=== PATIENT | female | born 1955 | race Caucasian/White ===

== ENCOUNTER 2020-03-26 02:19 | Outpatient (CLI) | payer MEDICARE, MEDICAID, SELFPAY ==
[2020-03-26 18:35] LABS: SARS-CoV-2 RNA PCR Negative
== END 2020-03-26 02:20 | disposition home or self-care (01) ==
LOC: ANHCOVIDDT 02:19
PROVIDERS: PCP Family Medicine; Visit Provider Internal Medicine Gastroenterology
DX: Z01.812 Encounter for preprocedural laboratory examination (principal); Z20.828 Contact with and (suspected) exposure to other viral communicable diseases
CPT/HCPCS: 87635; C9803; U0003

== ENCOUNTER 2020-03-29 00:28 | Day surgery (SDC) | payer MEDICARE, MEDICAID, SELFPAY ==
[2020-03-23 11:29] VITALS: BMI 24.2
[2020-03-29 13:32] VITALS: BP 116/97; PULSE 106; RESP 16; TEMP 36.4; O2SAT 98
[2020-03-29] MEDS: LACTATED RINGERS 1,000 ML 150 ML IV CONT (13:42)
--- NOTE | 2020-03-29 14:29 | WPDANESEPPF ---
Anes - Initial Pre Proc Eval Procedure: Operation Date: 03/29/20 14:00 Proposed Procedures p Esophagogastroduodenoscopy&Screen Colon - Sonny Cordero MD Date/Time: 03/29/20 14:29 Surgeon: Sonny Cordero MD Pre Op Diagnosis: Gerd,Dysphagia, Neoplasm Screening Patient Data Age: 64 Gender: F Height: 5 ft 6 in Weight: 70.8 kg Last Vital Signs Temp 36.4 C L 03/29/20 13:32 Pulse 106 H 03/29/20 13:32 Resp 16 03/29/20 13:32 BP 116/97 H 03/29/20 13:32 Pulse Ox 98 03/29/20 13:32 Allergies Allergy/AdvReac Type Severity Reaction Status Date / Time morphine Allergy Severe Swelling Verified 03/29/20 13:30 Home Medications Medication Instructions Recorded Confirmed Type linaclotide 290 mcg capsule 290 mcg PO QAM PRN 02/21/19 03/23/20 History albuterol sulfate 90 mcg/actuation 2 puff INHALATION Q4-6H PRN #18 gm 07/18/19 03/23/20 Rx aerosol inhaler budesonide-formoterol HFA 160 2 puff INHALATION Q12H #10.2 gm 07/18/19 03/23/20 Rx mcg-4.5 mcg/actuation aerosol inhaler tiotropium bromide 18 mcg capsule 1 cap INHALATION DAILY #30 07/18/19 03/23/20 Rx with inhalation device inhalation esomeprazole magnesium 40 mg 40 mg PO DAILY #30 cap 02/14/20 03/23/20 Rx capsule,delayed release aspirin 81 mg tablet,delayed 81 mg PO DAILY 02/23/20 03/23/20 History release zolpidem 10 mg tablet 10 mg PO HS tablet 02/23/20 03/23/20 History hydrocodone-acetaminophen 1 tablet PO Q8-12H PRN 03/23/20 03/23/20 History spironolactone 50 mg PO QAM PRN 03/23/20 03/23/20 History triamterene-hydrochlorothiazid 1 cap PO PRN PRN 03/23/20 03/23/20 History Patient hx anesthesia problems: none Family hx anesthesia problems: none PMFSH Past Medical History Medical History Acute non-recurrent maxillary sinusitis Benign colon polyp Cerebral palsy Chronic anxiety Chronic depression Chronic left hip pain Chronic low back pain without sciatica Chronic pain of left knee Colon polyp COPD (chronic obstructive pulmonary disease) Dysphagia GERD (gastroesophageal reflux disease) Hirsutism Insomnia Rectal pain Tobacco consumption Tobacco use disorder, continuous Vitamin B12 deficiency anemia Vitamin D deficiency, unspecified Family History Family History Mother Family history of malignant neoplasm, Onset Age: 60 Father Family history of congestive heart failure, Onset Age: 63 Social History Social History Smoking packs per day: 0.5 Smoking cigarettes per day: 10.0 Years smoked: 51 Smoking pack-years: 25.50 Smoking status: Current every day smoker Tobacco type: cigarettes Alcohol intake: current Substance use: never Substance use type: does not use Living arrangements: with family Spiritual care concerns: No Anes - Eval Final PreProcedure Day of Procedure 03/29/20 14:29 Patient weight: normal Heart: regular rate and rhythm Lungs: clear to auscultation Airway: Mallampati scale class II Neurological: alert and oriented Last oral intake: >/= 8 hours ASA classification: III Emergent: no Anesthetic plan: proceed Anesthesia type and monitoring: general GIVS and standard monitoring Informed Consent: The patient's anesthetic plan and its attendant risks and benefits were discussed with the patient/family/POA. Questions were solicited and answers provided to the satisfaction of the patient/family/POA.
--- NOTE | 2020-03-29 15:00 | PM.HPGS ---
History of Present Illness History of Present Illness Consent: Risks, benefits, and alternatives have been discussed and questions answered. Patient agrees to proceed with procedure. Chief complaint: Gerd,Dysphagia, Neoplasm Screening Narrative: Kayy Cabello is a 64 year old female with GERD on nexium and history of esophageal dilation, also colon polyps Review of Systems Constitutional: Constitutional: Denies headache(s) and Denies weakness Eyes: Eyes: Denies blurry vision ENT: Reports Normal hearing present, Denies headache(s) and Denies neck pain Cardiovascular: Cardiovascular: Denies chest pain and Denies dyspnea Respiratory: Respiratory: Denies dyspnea Gastrointestinal: Gastrointestinal: Reports no additional gastrointestinal complaints Genitourinary: Genitourinary: Denies dysuria Musculoskeletal: Musculoskeletal: Denies neck pain Integumentary/Breasts: Skin/Breast: Denies dry skin Neurologic: Reports Normal hearing present, Denies headache(s) and Denies weakness Psychiatric: Psychiatric: Denies anxiety Endocrine: Endocrine: Denies change in body appearance Hematologic/Lymphatic: Hematologic/Lymphatic: Denies easy bleeding Allergic/Immunologic: Allergic/Immunologic: Denies urticaria PMFSH Past Medical History Medical History Acute non-recurrent maxillary sinusitis Benign colon polyp Cerebral palsy Chronic anxiety Chronic depression Chronic left hip pain Chronic low back pain without sciatica Chronic pain of left knee Colon polyp COPD (chronic obstructive pulmonary disease) Dysphagia GERD (gastroesophageal reflux disease) Hirsutism Insomnia Rectal pain Tobacco consumption Tobacco use disorder, continuous Vitamin B12 deficiency anemia Vitamin D deficiency, unspecified Family History Family History Mother Family history of malignant neoplasm, Onset Age: 60 Father Family history of congestive heart failure, Onset Age: 63 Social History Social History Smoking packs per day: 0.5 Smoking cigarettes per day: 10.0 Years smoked: 51 Smoking pack-years: 25.50 Smoking status: Current every day smoker Tobacco type: cigarettes Alcohol intake: current Substance use: never Substance use type: does not use Living arrangements: with family Spiritual care concerns: No Meds Home Medications and Allergies Home Medications Medication Instructions Recorded Confirmed Type linaclotide 290 mcg capsule 290 mcg PO QAM PRN 02/21/19 03/23/20 History albuterol sulfate 90 mcg/actuation 2 puff INHALATION Q4-6H PRN #18 gm 07/18/19 03/23/20 Rx aerosol inhaler budesonide-formoterol HFA 160 2 puff INHALATION Q12H #10.2 gm 07/18/19 03/23/20 Rx mcg-4.5 mcg/actuation aerosol inhaler tiotropium bromide 18 mcg capsule 1 cap INHALATION DAILY #30 07/18/19 03/23/20 Rx with inhalation device inhalation esomeprazole magnesium 40 mg 40 mg PO DAILY #30 cap 02/14/20 03/23/20 Rx capsule,delayed release aspirin 81 mg tablet,delayed 81 mg PO DAILY 02/23/20 03/23/20 History release zolpidem 10 mg tablet 10 mg PO HS tablet 02/23/20 03/23/20 History hydrocodone-acetaminophen 1 tablet PO Q8-12H PRN 03/23/20 03/23/20 History spironolactone 50 mg PO QAM PRN 03/23/20 03/23/20 History triamterene-hydrochlorothiazid 1 cap PO PRN PRN 03/23/20 03/23/20 History Allergies Allergy/AdvReac Type Severity Reaction Status Date / Time morphine Allergy Severe Swelling Verified 03/29/20 13:30 Vital Signs Vital Signs - 24 hr 03/29/20 13:32 Temperature 97.5 F L Pulse Rate 106 H Respiratory Rate 16 Blood Pressure 116/97 H Pulse Oximetry 98 Exam Const: General: comfortable and no acute distress HENMT: General nose exam: Normal nares present Eyes: General: appearance normal, both eyes and all rela
[2020-03-29] MEDS: BENZOCAINE (*SP) 60 ML SPRAY CAN (HURRICAINE) 1 SPRAY MUCOUS MEM (15:07)
[2020-03-29 15:37] VITALS: BP 87/57; PULSE 85; RESP 22; O2SAT 96
[2020-03-29 15:47] VITALS: BP 89/52; PULSE 81; RESP 20; O2SAT 98
[2020-03-29 15:54] VITALS: BP 109/77; PULSE 78; RESP 19; O2SAT 99
== END 2020-03-29 16:10 | disposition home or self-care (01) ==
PROVIDERS: PCP Family Medicine; Visit Provider Internal Medicine Gastroenterology
PROC: 0DJ08ZZ Inspection of Upper Intestinal Tract, Via Natural or Artificial Opening Endoscopic (ICD-10-PCS; CPT 43235; principal; 2020-03-29 14:00)
DX: Z12.11 Encounter for screening for malignant neoplasm of colon (principal); D12.3 Benign neoplasm of transverse colon; K21.9 Gastro-esophageal reflux disease without esophagitis; R13.10 Dysphagia, unspecified; Z79.82 Long term (current) use of aspirin; Z79.51 Long term (current) use of inhaled steroids; Z86.010 Personal history of colon polyps; K30 Functional dyspepsia; R13.19 Other dysphagia; K63.89 Other specified diseases of intestine; Z98.0 Intestinal bypass and anastomosis status; K63.5 Polyp of colon; K57.30 Diverticulosis of large intestine without perforation or abscess without bleeding; K29.50 Unspecified chronic gastritis without bleeding; K64.8 Other hemorrhoids; G80.9 Cerebral palsy, unspecified; F41.9 Anxiety disorder, unspecified; F32.9 Major depressive disorder, single episode, unspecified; J44.9 Chronic obstructive pulmonary disease, unspecified; L68.0 Hirsutism; E55.9 Vitamin D deficiency, unspecified; D51.9 Vitamin B12 deficiency anemia, unspecified; F17.210 Nicotine dependence, cigarettes, uncomplicated
CPT/HCPCS: 43239; 43249; 45380; 87081; 87635; 88305; C1726; C9803; J2704; J7120; U0003

== ENCOUNTER 2022-11-18 00:30 | Day surgery (SDC) | payer MEDICARE, MEDICAID, SELFPAY ==
[2022-11-11 10:00] VITALS: BMI 25.9
[2022-11-18 08:25] VITALS: BP 101/71; PULSE 111; RESP 18; TEMP 35.7; O2SAT 100; BMI 25.1
[2022-11-18] MEDS: LACTATED RINGERS 1,000 ML 150 ML IV CONT (08:47)
--- NOTE | 2022-11-18 09:13 | PM.HPGS ---
History of Present Illness History of Present Illness Consent: Risks, benefits, and alternatives have been discussed and questions answered. Patient agrees to proceed with procedure. 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. She takes Wilson 5 times per day using Relistor. Last egd 2020 with non-obstructive ring that was dilated, lately with dysphagia again, also had small TA polyp removed. Review of Systems Constitutional: Constitutional: Denies headache(s) and Denies weakness Eyes: Eyes: Denies blurry vision ENT: Reports Normal hearing present, Denies headache(s) and Denies neck pain Cardiovascular: Cardiovascular: Denies chest pain and Denies dyspnea Respiratory: Respiratory: Denies dyspnea Gastrointestinal: Gastrointestinal: Reports no additional gastrointestinal complaints Genitourinary: Genitourinary: Denies dysuria Musculoskeletal: Musculoskeletal: Denies neck pain Integumentary/Breasts: Skin/Breast: Denies dry skin Neurologic: Reports Normal hearing present, Denies headache(s) and Denies weakness Psychiatric: Psychiatric: Denies anxiety Endocrine: Endocrine: Denies change in body appearance Hematologic/Lymphatic: Hematologic/Lymphatic: Denies easy bleeding Allergic/Immunologic: Allergic/Immunologic: Denies urticaria PMFSH Past Medical History Medical History (Updated 10/16/22 @ 14:00 by Elsi Warner APRN) Acute non-recurrent maxillary sinusitis Benign colon polyp Cerebral palsy Chronic anxiety Chronic depression Chronic left hip pain Chronic low back pain without sciatica Chronic pain of left knee Colon polyp Constipation due to opioid therapy COPD (chronic obstructive pulmonary disease) Dysphagia Esophageal spasm GERD (gastroesophageal reflux disease) Hematochezia Hirsutism Hx of colonic polyps Insomnia Nausea and vomiting Rectal pain Tobacco consumption Tobacco use disorder, continuous Vitamin B12 deficiency anemia Vitamin D deficiency, unspecified Family History Family History Mother Family history of malignant neoplasm, Onset Age: 60 Father Family history of congestive heart failure, Onset Age: 63 Social History Social History Smoking packs per day: 0.5 Smoking cigarettes per day: 10.0 Years smoked: 54 Smoking pack-years: 27.00 Smoking status: Current every day smoker Tobacco type: cigarettes Alcohol intake: current Alcohol use details: seldom Substance use: never Substance use type: does not use Living arrangements: with family Spiritual care concerns: No Meds Home Medications and Allergies Home Medications Medication Instructions Recorded Confirmed Type albuterol sulfate 90 mcg/actuation 2 puff inhalation Q4-6H PRN 07/18/19 11/18/22 Rx aerosol inhaler (ProAir HFA) shortness of breath or wheezing #18 grams aspirin 81 mg tablet,delayed 81 mg PO DAILY 02/23/20 11/18/22 History release zolpidem 10 mg tablet 10 mg PO HS 02/23/20 11/18/22 History hydrocodone 10 mg-acetaminophen 1 tablet PO Q8-12H PRN Pain 03/23/20 11/18/22 History 325 mg tablet docusate sodium 100 mg capsule 100 mg PO QHS #30 caps 10/16/22 11/18/22 Rx (Colace) methylnaltrexone 150 mg tablet 450 mg PO DAILY 1 month #90 tabs 10/16/22 11/18/22 Rx (Relistor) budesonide-formoterol HFA 160 2 puff inhalation Q12H PRN 11/11/22 11/18/22 History mcg-4.5 mcg/actuation aerosol Shortness Of Breath inhaler (Symbicort) cholecalciferol (vitamin D3) 25 25 mcg PO DAILY 11/11/22 11/18/22 History mcg (1,000 unit) tablet (Vitamin D3) dexlansoprazole 60 mg 60 mg PO DAILY PRN Indigestion 11/11/22 11/18/22
--- NOTE | 2022-11-18 09:14 | WPDANESEPPF ---
Anes - Initial Pre Proc Eval Procedure: Operation Date: 11/18/22 09:45 Proposed Procedures p Esophagogastroduodenoscopy & Colonoscopy - Sonny Cordero MD Date/Time: 11/18/22 09:14 Surgeon: Sonny Cordero MD Pre Op Diagnosis: GERD,Dysphagia,Melena,hx colon polyps Patient Data Age: 67 Gender: F Height: 1.68 m Weight: 70.6 kg Last Vital Signs Temp 35.7 C L 11/18/22 08:25 Pulse 111 H 11/18/22 08:25 Resp 18 11/18/22 08:25 BP 101/71 11/18/22 08:25 Pulse Ox 100 11/18/22 08:25 O2 Del Method Room Air 11/18/22 08:25 Allergies Allergy/AdvReac Type Severity Reaction Status Date / Time morphine Allergy Severe Nausea and Verified 11/18/22 08:26 Vomiting Home Medications Medication Instructions Recorded Confirmed Type albuterol sulfate 90 mcg/actuation 2 puff inhalation Q4-6H PRN 07/18/19 11/18/22 Rx aerosol inhaler (ProAir HFA) shortness of breath or wheezing #18 grams aspirin 81 mg tablet,delayed 81 mg PO DAILY 02/23/20 11/18/22 History release zolpidem 10 mg tablet 10 mg PO HS 02/23/20 11/18/22 History hydrocodone 10 mg-acetaminophen 1 tablet PO Q8-12H PRN Pain 03/23/20 11/18/22 History 325 mg tablet docusate sodium 100 mg capsule 100 mg PO QHS #30 caps 10/16/22 11/18/22 Rx (Colace) methylnaltrexone 150 mg tablet 450 mg PO DAILY 1 month #90 tabs 10/16/22 11/18/22 Rx (Relistor) budesonide-formoterol HFA 160 2 puff inhalation Q12H PRN 11/11/22 11/18/22 History mcg-4.5 mcg/actuation aerosol Shortness Of Breath inhaler (Symbicort) cholecalciferol (vitamin D3) 25 25 mcg PO DAILY 11/11/22 11/18/22 History mcg (1,000 unit) tablet (Vitamin D3) dexlansoprazole 60 mg 60 mg PO DAILY PRN Indigestion 11/11/22 11/18/22 History capsule,biphase delayed release (Dexilant) hydromorphone 4 mg tablet 4 mg PO BID PRN Pain 11/11/22 11/18/22 History tiotropium bromide 18 mcg capsule 1 cap inhalation DAILY PRN 11/11/22 11/18/22 History with inhalation device (Spiriva Shortness Of Breath with HandiHaler) Patient hx anesthesia problems: none Family hx anesthesia problems: none Results Review: All pre-operative results and documents have been reviewed as part of the pre-operative evaluation. [facility] Past Medical History Medical History Acute non-recurrent maxillary sinusitis Benign colon polyp Cerebral palsy Chronic anxiety Chronic depression Chronic left hip pain Chronic low back pain without sciatica Chronic pain of left knee Colon polyp Constipation due to opioid therapy COPD (chronic obstructive pulmonary disease) Dysphagia Esophageal spasm GERD (gastroesophageal reflux disease) Hematochezia Hirsutism Hx of colonic polyps Insomnia Nausea and vomiting Rectal pain Tobacco consumption Tobacco use disorder, continuous Vitamin B12 deficiency anemia Vitamin D deficiency, unspecified Family History Family History Mother Family history of malignant neoplasm, Onset Age: 60 Father Family history of congestive heart failure, Onset Age: 63 Social History Social History Smoking packs per day: 0.5 Smoking cigarettes per day: 10.0 Years smoked: 54 Smoking pack-years: 27.00 Smoking status: Current every day smoker Tobacco type: cigarettes Alcohol intake: current Alcohol use details: seldom Substance use: never Substance use type: does not use Living arrangements: with family Spiritual care concerns: No Anes - Eval Final PreProcedure Day of Procedure 11/18/22 09:14 Patient weight: normal Heart: regular rate and rhythm Lungs: decreased breath sounds Neurological: alert and oriented Last oral intake: >/= 8 hours ASA classification: III Emergent: no Anesthetic plan: proceed Anesthesia type and mo
--- NOTE | 2022-11-18 09:31 | SUR.OPER ---
EGD START: 918; END: 925. COLONOSCOPY START: 930; END: 939.
[2022-11-18 09:43] VITALS: BP 96/68; PULSE 90; RESP 20; O2SAT 99
[2022-11-18 09:53] VITALS: BP 96/58; PULSE 78; RESP 20; O2SAT 100
[2022-11-18 10:03] VITALS: BP 100/76; PULSE 80; RESP 21; O2SAT 100
== END 2022-11-18 10:13 | disposition home or self-care (01) ==
PROVIDERS: Visit Provider Internal Medicine Gastroenterology
PROC: 0DJ08ZZ Inspection of Upper Intestinal Tract, Via Natural or Artificial Opening Endoscopic (ICD-10-PCS; CPT 43235; principal; 2022-11-18 09:45)
DX: Z12.11 Encounter for screening for malignant neoplasm of colon (principal); D12.4 Benign neoplasm of descending colon; K63.5 Polyp of colon; Z98.0 Intestinal bypass and anastomosis status; Z90.49 Acquired absence of other specified parts of digestive tract; K59.03 Drug induced constipation; K21.00 Gastro-esophageal reflux disease with esophagitis, without bleeding; K22.2 Esophageal obstruction; K44.9 Diaphragmatic hernia without obstruction or gangrene; K29.70 Gastritis, unspecified, without bleeding; Z79.51 Long term (current) use of inhaled steroids; Z79.82 Long term (current) use of aspirin; G80.9 Cerebral palsy, unspecified; J44.9 Chronic obstructive pulmonary disease, unspecified; D51.3 Other dietary vitamin B12 deficiency anemia; E55.9 Vitamin D deficiency, unspecified; F17.210 Nicotine dependence, cigarettes, uncomplicated
CPT/HCPCS: 45385; 43239; 43249; 88305; C1726; J2704; J7120

== ENCOUNTER 2025-03-21 03:28 | Day surgery (SDC) | payer MEDICARE, OTHER, SELFPAY ==
[2025-02-27 13:50] VITALS: BMI 26.3
--- OUTSIDE RECORDS SUMMARY | 2025-03-20 11:15 | XMS_ITS | Encounter Summary ---
Author Organization [facility] Healthcare Address [address] [place] [address] Care Team Providers Care Assembler Rubber Footwear Name Role Phone Terrence Gibson MD Primary Care Provi audi Vinay Espinal MD Unavailable [phone] Damion Siddiqui MD, Mario P. Unavailable [phone] Alexus Alonzo Unavailable [phone] Encounter Details Date Type Department Care Team (Latest Contact Info) Description 03/20/2025 11:15 AM PROTOHISTORIAN - 03/20/2025 11:59 PM PROTOHISTORIAN Hospital Encounter [facility] [address] [place] [address] Closed fracture of right tibial plateau with routine healing, subsequent encounter; Acute pain of left knee Discharge Disposition: Discharge to home or self care Social History Tobacco Use Types Packs/Day Years Used Date Smoking Tobacco: Every Day Cigarettes 0.5 55.9 Started: 1970 Passive Smoke Exposure: Current Smokeless Tobacco: Never Alcohol Use Standard Drinks/Week Comments Not Currently 0 (1 standard drink = 0.6 oz pur e alcohol) OASIS D0700: Social Isolation Answer Da te Recorded Frequency of experiencing loneliness or isolatio n Never 07/08/2024 OASIS A1250: Transportation Answer Date Recorded Lack of Transportation (Medical) No 07/08/2024 Lack of Transportation (Non-Medical) No 07/08/2024 Patient Unable or Declines to Respond No 07/08/2024 OASIS B1300: Health Literacy Answer Maurisio e Recorded Frequency of needing help to read materials from doctor or pharmacy Never 07/08/2024 [facility] Utilities Answer Date Recorded In the past 12 months has th e electric, gas, oil, or water company threatened to shut off services in your home? No 05/25/2024 Social Connection and Isolation Panel Answer Date Recorded In a typical week, how many times do you talk on the phone with family, friends, or neighbors? More than three times a week 05/25/2024 How often do you get togethe r with friends or relatives? More than three times a week 05/25/2024 How often do you attend chur ch or gnosticism services? Never 05/25/2024 Do you belong to any clubs o r organizations such as mandaeism groups, unions, fraternal or athletic groups, or school groups? No 05/25/2024 How often do you attend meet ings of the clubs or organizations you belong to? Never 05/25/2024 Are you , , di vorced, , never , or living with a partner? 05/25/2024 AUDIT-C Answer Date Recorded Q1: How often do you have a drink containing alc ohol? Monthly or less 09/20/2024 Q2: How many drinks containi ng alcohol do you have on a typical day when you are drinking? 1 or 2 09/20/2024 Q3: How often do you have si x or more drinks on one occasion? Never 09/20/2024 Overall Financial Resource Strain (CARDIA) Answe r Date Recorded How hard is it for you to pa y for the very basics like food, housing, medical care, and heating? Not hard at all 05/25/2024 PHQ-2 Answer Date Recorded PHQ-2 Total Score (If total score is 3 or more points, staff should administer the PHQ-9) 6 02/01/2025 Hunger Vital Sign Answer Date Recorded Within the past 12 months, y ou worried that your food would run out before you got the money to buy more. Never true 05/25/19 25 Within the past 12 months, t he food you bought just didn't last and you didn't have money to get more. Never true 05/25/2024 PRAPARE - Transportation Answer Date Re corded In the past 12 months, has l ack of transportation kept you from medical appointments or from getting medications? No 05/14 In the past 12 months, has l ack of transportation kept you from meetings, work, or from getting things needed for daily living? No 05/25/2024 PHQ-9 Answer Date Recorded PHQ-9 Total Score 21 02/01/2025 Housing Stability Vital Sign Answer Maurisio e Recorded In the last 12 months, was t here a time when you were not able to pay the mortgage or rent on time? No 05/25/2024 In the past 12 months, how m any times have you moved where you were living? 0 05/25/2024 At any time in the past 12 m [facility], were you homeless or living in a fpc (including now)? No 05/25/2024 Personal Safety Answer Date Recorded Have you ever been in or are you currently in a harmful physical or emotional relationship or is someone making you feel afraid or unsafe? Denies 11/27/2024 Comments No Sex and Gender Information Value Date Recorded Sex Assigned at Not on file Legal Sex Female 4:03 AM PROTOHISTORIAN Gender Identity Not on file Sexual Orientation Not on file Occupation Industry Job Start Date Job End Date Disabled Not on file Not on file Not on file documented as of this encounter Medications at Time of Discharge albuterol HFA (PROVENTIL HFA,VENTOLIN HFA,PROAIR HFA) 90 mcg/actuation inhalerIndications :Chronic Obstructive Pulmonary Disease Inhale 2 puffs every 6 (six) hours as needed for wheezing 1 each 11 02/20/2024 celecoxib (CeleBREX) 100 mg capsuleIndications :Left knee pain, unspecified chronicity TAKE 1 CAPSULE(100 MG) BY MOUTH TWICE DAILY 180 capsule 11/01/2024 cyanocobalamin (Vitamin B-12) 1,000 mcg/mL injectionIndicatio ns:Vitamin B12 Deficiency Inject 1 mL (1,000 mcg total) under the skin every 4 (four) weeks 1 mL 11 02/01/2025 estradioL (Estrace) 0.01 % (0.1 mg/gram) vaginal creamIndications:V aginal atrophy Apply / applicator (1g) to the vagina 2-3 times per week (such as Thursday/Thursday /Thursday) 42.5 g 3 02/03/2025 fentaNYL (DURAGESIC) 50 mcg/hrIndications: severe chronic pain with opioid tolerance Place 1 patch on the skin every third day 04/22/2024 fluticasone-umecli din-vilanter (Trelegy Ellipta) 100-62.5-25 mcg inhaler Inhale 1 puff daily 30 each 11 06/28/2024 gabapentin (NEURONTIN) 300 mg capsule TAKE 1 CAPSULE BY MOUTH THREE TIMES DAILY NEEDED 10/04/2024 HYDROcodone-acetam inophen (NORCO) 10-325 mg per tablet TAKE 1 TABLET BY MOUTH EVERY 4-6 HOURS NEEDED FOR PAIN MUST LAST 14 DAYS 10/05/2024 ibuprofen (ADVIL,MOTRIN) 600 mg tablet Take 1 tablet (600 mg total) by mouth every 6 (six) hours as needed for pain 90 tablet 09/20/2024 methenamine (HIPREX) 1 gram tabletIndications: UTI prophylaxis Take 1 tablet (1 g total) by mouth 2 (two) times a day with meals 60 tablet 3 02/03/2025 naloxone (NARCAN) 4 mg/actuation spray,non-aerosol Administer 1 spray into affected nostril(s) as needed for opioid reversal or respiratory depression Call 911. Administer a single spray in one nostril. Repeat every 3 minutes as needed if no or minimal response. 2 each 3 02/01/[address] (PROTONIX) 40 mg EC tablet Take 1 tablet (40 mg total) by mouth daily 90 tablet 4 09/13/2024 plecanatide 3 mg tabletIndications: chronic idiopathic constipation Take 1 tablet (3 mg total) by mouth daily 90 tablet 3 09/13/2024 rOPINIRole (REQUIP) 0.5 mg tabletIndications: Restless Legs Syndrome TAKE 1 TABLET(0.5 MG) BY MOUTH EVERY NIGHT 100 tablet 1 10/10/2024 documented as of this encounter Discharge Disposition Disposition Code Departure Means Destination Discharge to home or self care documented in this encounter Plan of Treatment Not on file documented as of this encounter Procedures Procedure Name Priority Date/Time Associated Diagnosis Comments XR KNEE BILATERAL 3 VIEWS Schedule Routine, Read Routine (OP Routine) 03/20/2025 11:23 AM PROTOHISTORIAN Closed fracture of right tibial plateau with routine healing, subsequent encounter Acute pain of left knee documented in this encounter Results * XR Knee Bilateral 3 Views (03/20/2025 11:23 AM PROTOHISTORIAN) Anatomical Region Laterality Modality Lower Extremities, Knee Bilateral Computed Radiography 03/20/2025 1:37 PM PROTOHISTORIAN Impressions 03/20/2025 1:37 PM PROTOHISTORIAN 1. Mild medial and patellofemoral bicompartmental right knee osteoarthritis. 2. 2 component left knee arthroplasty in near-anatomic alignment. 3. Mildly displaced left lateral patellar facet fracture. Electronically signed by: Nav Marroquin M.D. Narrative 03/20/2025 1:37 PM PROTOHISTORIAN EXAMINATION: XR KNEE BILATERAL 3 VIEWS HISTORY: pain. Fall Bilateral knee osteoarthritis FINDINGS: 3 views each knee submitted with comparison 11/27/2024, 10/06/2024. Right knee: No acute fracture. Mild medial and patellofemoral bicompartmental right knee osteoarthritis. No effusion. Extensor mechanism enthesophyte formation is present. Left knee: 2 component left knee arthroplasty is in near-anatomic alignment. Mildly displaced lateral patellar facet fracture noted. Small knee effusion. Procedure Note Nav Marroquin MD - 03/20/2025 EXAMINATION: XR KNEE BILATERAL 3 VIEWS HISTORY: pain. Fall Bilateral knee osteoarthritis FINDINGS: 3 views each knee submitted with comparison 11/27/2024, 10/06/2024. Right knee: No acute fracture. Mild medial and patellofemoral bicompartmental right knee osteoarthritis. No effusion. Extensor mechanism enthesophyte formation is present. Left knee: 2 component left knee arthroplasty is in near-anatomic alignment. Mildly displaced lateral patellar facet fracture noted. Small knee effusion. IMPRESSION: 1. Mild medial and patellofemoral bicompartmental right knee osteoarthritis. 2. 2 component left knee arthroplasty in near-anatomic alignment. 3. Mildly displaced left lateral patellar facet fracture. Electronically signed by: Nav Marroquin M.D. Alok Miguel DO IMG XR PROCEDURES Final Result documented in this encounter Visit Diagnoses Diagnosis Closed fracture of right tibial plateau with routine healing, subsequent encounter Acute pain of left knee documented in this encounter Care Teams Assembler Rubber Footwear Relationship Specialty Start Date End Date Terrence Gibson MD [address] [address] PCP - General Family Medicine 06/17/22 Vinay Espinal MD [address] [address] Consulting Physician Pulmonary Disease 02/16/24 Mario Bruno Jr., MD [address] [place] [address] Consulting Physician Cardiology 04/26/24 Alexus Alonzo PA [address] [facility] [address] [place] [address] [place] [id number] Orthopedic Surgery 05/24/24 documented as of this encounter
--- OUTSIDE RECORDS SUMMARY | 2025-03-20 11:30 | XMS_ITS | Encounter Summary ---
Author Organization [facility] Healthcare Address [address] [place] [address] Care Team Providers Care Informatics Specialist Name Role Phone Terrence Gibson MD Primary Care Provi audi Vinay Espinal MD Unavailable [phone] Damion Siddiqui MD, Mario P. Unavailable [phone] Alexus Alonzo Unavailable [phone] Reason for Visit * Reason Comments Pain Fracture Pain Encounter Details Date Type Department Care Team (Late st Contact Info) Description 03/20/2025 11:30 AM ROLL OVER LOADER Office Visit [facility] Orthopedics and Sports Medicine [address] [place] [phone] Alok Miguel DO [address] [place] [id number] Closed fracture of right tibial plateau with routine healing, subsequent encounter (Primary Dx); Acute pain of left knee; Closed displaced fracture of left patella with routine healing, unspecified fracture morphology, subsequent encounter Social History Tobacco Use Types Packs/Day Years [...] materials from doctor or pharmacy Never 07/08/2024 [facility] Utilities Answer Date Recorded In the past [...] often do you attend chur ch or spiritism services? Never 05/25/2024 Do you belong to any clubs o r organizations such as sikhism groups, unions, fraternal or athletic groups, or [...] any time in the past 12 m onths, were you homeless or living in a usp (including now)? No 05/25/2024 Personal Safety Answer Date Recorded Have you ever been in or are you currently in a harmful physical or emotional relationship or is someone making you feel afraid or unsafe? Denies 11/27/2024 Comments No Sex and Gender Information Value Date Recorded Sex Assigned at Not on file Legal Sex Female 4:03 AM ROLL OVER LOADER Gender Identity Not on file Sexual Orientation Not on file Occupation Industry Job Start Date Job End Date Disabled Not on file Not on file Not on file documented as of this encounter Progress Notes * Alok Miguel, - 03/20/2025 11:30 AM CST Images from the original note were not included. This patient has verbally consented to recording this visit in order to utilize AI technology in generating this note. FOLLOW UP PATIENT VISIT Subjective CHIEF COMPLAINT She had concerns including Pain and Fracture of the Right Knee and Pain of the Left Knee. History of Present Illness Kayy Cabello is a 69 year old female with a history of knee surgery who presents with concerns about a recent fall on her surgically repaired knee. She experienced a fall on February 12 or , landing directly on her surgically repaired knee. She is concerned about potential damage, noting a persistent swelling on the knee and pain in the areawhere she fell. She describes a 'round thing' on the knee that hurts with movement. Prior to the fal l, her knee was functioning well, allowing her to perform all activities without limitation. She has a history of cerebral palsy, contributing to leg length discrepancy, for which she uses shoe lifts. She reports frequent falls, attributing them to her knee 'giving out,' described as bendingforward unexpectedly. A recent fall occurred while trying to get out of bed, where she caught herself on a bedpost. She also reports chronic hip pain, sometimes radiating to the groin. She experiences difficulty distinguishing which pain is most severe due to multiple sources of discomfort. She uses a cane but not consistently at home. Objective PHYSICAL EXAM There were no vitals taken for this visit. Exam of the right knee shows no effusion. No pain over the medial tibial plateau. Diffuse atrophy in the right leg with shortening. Flexion contracture of proximally 10??. She is able to flex to 110.Stable ligamentously. Left knee with anterior incision well healed. No significant effusion. She has tenderness over the lateral pole of the patella. She is able to fully extend and flex to 120??. The knee feels stable ligamentously. Extensor mechanism intact REVIEW OF X-RAYS/STUDIES/LABS X-rays reviewed and interpreted today of the bilateral knees showing a minimally displaced fractureof the lateral pole of the patella on last month. Total knee arthroplasty intact with no signs of hardware failure. Right knee with no acute osseous abnormalities. No signs of collapse of the medial tibial plateau Diagnoses and all orders for this visit: Closed fracture of right tibial plateau with routine healing, subsequent encounter (Primary) - XR Knee Bilateral 3 Views; Future Acute pain of left knee - XR Knee Bilateral 3 Views; Future Closed displaced fracture of left patella with routine healing, unspecified fracture morphology, subsequent encounter Assessment & Plan Closed fracture of left patella Closed fracture of the left patella small step-off on the lateral facet. I will treat with closed treatment. Her fracture does not appear to involve the majority of the joint. I will allow her to ambulate as tolerated. She has significant weakness in her right leg and predominantly relies on her left. She may utilize a walker or cane as needed. She declined a brace today. - No surgical intervention required. Closed fracture of right tibial plateau with routine healing Right tibial plateau fracture healing well. No further intervention needed. Alok Wiechert, DO OVER LOADER documented in this encounter Plan of Treatment Not on file documented as of this encounter Results * XR Knee Bilateral 3 Views (03/20/2025 11:23 AM ROLL OVER LOADER) Anatomical Region Laterality Modality Lower Extremities, Knee Bilateral Computed Radiography 03/20/2025 1:37 PM ROLL OVER LOADER Impressions 03/20/2025 1:37 PM ROLL OVER LOADER 1. Mild medial and patellofemoral bicompartmental right knee osteoarthritis. 2. 2 component left knee arthroplasty in near-anatomic alignment. 3. Mildly displaced left lateral patellar facet fracture. Electronically signed by: Nav Marroquin M.D. Narrative 03/20/2025 1:37 PM ROLL OVER LOADER EXAMINATION: XR KNEE BILATERAL 3 VIEWS HISTORY: [...] right tibial plateau with routine healing, subsequent encounter- Primary Acute pain of left knee Closed displaced fracture of left patella with routine healing, unspecified fracture morphology, subsequent encounter Closed fracture of right tibial plateau with routine healing, subsequent encounter Acute pain of left knee documented in this encounter Care Teams Informatics Specialist Relationship Specialty Start Date End Date Terrence Gibson MD [address] [address] PCP - General Family Medicine 06/17/22 Vinay Espinal MD [address] [address] Consulting Physician Pulmonary Disease 02/16/24 Mario Bruno Jr., MD [address] [place] [address] Consulting Physician Cardiology 04/26/24 Alexus Alonzo PA [address] [facility] [address] [address] Orthopedic Surgery 05/24/24 documented as of this encounter
--- OUTSIDE RECORDS SUMMARY | 2025-03-21 03:31 | XMS_ITS | Clinical Summary ---
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 Screening TECHNIQUE: Low radiation dose chest protocol. No intravenous contrast. Reconstructed slice width 1.[address] Dose Index 1.2 mGy. Dose-length product 40.4 mGy-cm. COMPARISON: 04/16/2023 FINDINGS: Lung nodules or findings of lung cancer: A 0.6 cm solid right lower lobe pulmonary nodule is unchanged from prior (table position -17.8). Smoking related lung disease: Mild apical predominant centrilobular emphysema. Other findings: Mild coronary artery calcifications. Small hiatal hernia. Basilar subpleural reticulation and bronchiolectasis is again seen. IMPRESSION: 1. LungRADS Category 2 (benign). Recommend Low dose Screening CT of chest in 12 months. LungRADS Categories: 1 - Negative (no nodules, or only benign calcified or fat-containing nodules) 2 - Benign Appearance or Behavior (nodules with very low likelihood of becoming a clinically active cancer due to size or lack of growth) 3 - Probably Benign (probably benign findings-short term follow up suggested; includes nodules with a low likelihood of becoming a clinically active cancer) 4A,4B,4X - Suspicious (category 3 or 4 nodules with findings for which additional diagnostic testing and/or tissue sampling is recommended) S - Other (clinically significant or potentially clinically significant findings (non-lung cancer) C - Prior Lung Cancer (modifier for patients with a prior diagnosis of lung cancer who return to screening) Electronically signed by: Kendall Corley M.D. Vinay Espinal MD IMG CT PROCEDURES Fi nal Result * DIAGNOSTIC MAMMOGRAM BILATERAL W ESTELA (11/12/2023 12:16 PM CDT) Anatomical Region Laterality Modality Breast Bilateral Mammography 11/12/2023 1:42 PM CDT Impressions 11/12/2023 1:46 PM CDT 1. No mammographic or sonographic correlate for the palpable area of concern in the right breast. Continued clinical follow-up is recommended. 2. Benign skin lesion in the upper inner right breast, likely representing a sebaceous cyst. 3. No mammographic evidence of malignancy in either breast. OVERALL FINAL ASSESSMENT: BI-RADS Category 2: Benign. RECOMMENDATION: 1. Annual screening mammography is recommended. 2. Clinical follow-up is recommended. Dr. Berumen discussed the above findings and recommendations with the patient, who expressed her understanding of the management plan. Dictated by: Pao Berumen M.D. The radiology attending physician has personally reviewed this study, and had reviewed and/or edited this written report and agrees with it. Electronically signed by: Kanchan Phelan M.D. Narrative 11/12/2023 1:46 PM CDT EXAMINATION: BILATERAL DIGITAL DIAGNOSTIC MAMMOGRAM INCLUDING CAD AND BILATERAL DIGITAL BREAST TOMOSYNTHESIS; RIGHT BREAST SONOGRAM HISTORY: 68-year-old woman with palpable abnormality and intermittent pain in the lower the inner right breast. COMPARISON: None. This is the patient's baseline mammogram. TECHNIQUE: Full field digital mammographic views of BOTH breasts were performed, including computer aided detection (CAD) and BILATERAL digital breast tomosynthesis (DBT). Directed ultrasound evaluation of the RIGHT breast was performed by a trained dictating machine typist and by Dr. Berumen. BREAST PARENCHYMAL COMPOSITION: There are scattered areas of fibroglandular density. MAMMOGRAM FINDINGS: Triangular palpable marker is present overlying the slightly lower right breast on the mediolateral oblique view. There is a 0.8 cm circumscribed oval mass close to the skin surface in the upper inner right breast. No additional suspicious mass, architectural distortion or calcification in either breast. SONOGRAM FINDINGS: In the right breast at 3:30, 10 cm from the nipple, at the site of palpable concern, there is normal-appearing breast tissue. No suspicious cystic or solid mass. In the right breast at 1:30, 15 cm from the nipple, there is an oval hypoechoic intradermal mass measuring 0.7 x 0.5 x 0.7 cm, which correlates to the mammographic finding. No internal vascularity. Procedure Note Kanchan Phelan MD - 11/12/2023 EXAMINATION: BILATERAL DIGITAL DIAGNOSTIC MAMMOGRAM INCLUDING CAD AND BILATERAL DIGITAL BREAST TOMOSYNTHESIS; RIGHT BREAST SONOGRAM HISTORY: 68-year-old woman with palpable abnormality and intermittent pain in the lower the inner right breast. COMPARISON: None. This is the patient's baseline mammogram. TECHNIQUE: Full field digital mammographic views of BOTH breasts were performed, including computer aided detection (CAD) and BILATERAL digital breast tomosynthesis (DBT). Directed ultrasound evaluation of the RIGHT breast was performed by a trained dictating machine typist and by Dr. Berumen. BREAST PARENCHYMAL COMPOSITION: There are scattered areas of fibroglandular density. MAMMOGRAM FINDINGS: Triangular palpable marker is present overlying the slightly lower right breast on the mediolateral oblique view. There is a 0.8 cm circumscribed oval mass close to the skin surface in the upper inner right breast. No additional suspicious mass, architectural distortion or calcification in either breast. SONOGRAM FINDINGS: In the right breast at 3:30, 10 cm from the nipple, at the site of palpable concern, there is normal-appearing breast tissue. No suspicious cystic or solid mass. In the right breast at 1:30, 15 cm from the nipple, there is an oval hypoechoic intradermal mass measuring 0.7 x 0.5 x 0.7 cm, which correlates to the mammographic finding. No internal vascularity. IMPRESSION: 1. No mammographic or sonographic correlate for the palpable area of concern in the right breast. Continued clinical follow-up is recommended. 2. Benign skin lesion in the upper inner right breast, likely representing a sebaceous cyst. 3. No mammographic evidence of malignancy in either breast. OVERALL FINAL ASSESSMENT: BI-RADS Category 2: Benign. RECOMMENDATION: 1. Annual screening mammography is recommended. 2. Clinical follow-up is recommended. Dr. Berumen discussed the above findings and recommendations with the patient, who expressed her understanding of the management plan. Dictated by: Pao Berumen M.D. The radiology attending physician has personally reviewed this study, and had reviewed and/or edited this written report and agrees with it. Electronically signed by: Kanchan Phelan M.D. Terrence Gibson MD IM MAMMO PROCEDURE S Final Result * (ABNORMAL) HM COLONOSCOPY (11/18/2022) Historical Provider HEALTH MAINTENANCE Final Result * (ABNORMAL) HM DEXA SCAN (08/12/2022) 08/12/2022 Historical Provider HEALTH MAINTENANCE Final Result from Last 3 Months or Most Recently Relevant to Health Maintenance Additional Health Concerns Active Problems Noted Date Diagnosed Date Autogenerated Problem 03/21/2025 Insurance [facility] MEDICARE ADVANTAGE [facility] MEDICARE ADVANTAGE IDPA [facility] MED[facility] ADVANTAGE Advance Directives For more information, please contact: [phone] * Full Code (Latest Code Status on File) Date Activated Date Inactivated Comments 05/24/2024 11:01 AM 05/26/2024 5:11 PM Care Teams Auto Dismantler Relationship Specialty Start Date End Date Terrence Gibson MD [address] [address] PCP - General Family Medicine 06/17/22 Vinay Espinal MD [address] [address] Consulting Physician Pulmonary Disease 02/16/24 Mario Bruno Jr., MD [address] [place] [address] Consulting Physician Cardiology 04/26/24 Alexus Alonzo PA [address] [place] [id number] Orthopedic Surgery 05/24/24
--- OUTSIDE RECORDS SUMMARY | 2025-03-21 03:31 | XMS_ITS | Clinical Summary ---
Author Organization [facility] [employer] Address [address] [facility] [place] [address] Care Team Providers Care Digital Data Analyst Name Role Phone Terrence Gibson MD Primary Care Provi audi Travon Mix OD Unavailable [phone] Source Comments [facility] [employer]non-owned Affiliates and Associated Physician Practices is amultiple site organization consisting of ambulatory clinics and hospital sitesin [place], [place], [place]. This disclosure is being madepursuant to the Care Everywhere program and may not contain all information available regarding this patient. Last updated 18.[facility] [employer] Allergies Active Allergy Reactions Criticality Noted Date Comments Morphine Nausea and/or Vomiting,Vomiting Low 08/2020 Medications * This document contains information received from the source organization and may not represent a complete record from that organization. * Be aware that medications may not be up to date on this document. Alwaysverify current medications with the patient. PROAIR HFA 108 (90 Base) MCG/ACT inhaler INL 2 PFS PO Q 4 TO 6 H PRF SOB OR WHZ 0 Active cyanocobalamin (VITAMIN B-12) injection ADMINISTER 1 ML IN THE MUSCLE EVERY MONTH 1 Active naloxone HCl (Narcan) 4 MG/0.1ML nasal spray [place] 1 (one) spray into the nose as needed 5 Active fentaNYL (Duragesic) 50 MCG/HR patch APPLY 1 PATCH TO SKIN EVERY 72 HOURS NEEDED 5 Active Fluticasone-Ume clidin-Vilant (Trelegy Ellipta) 100-62.5-25 MCG/ACT Inhale 1 (one) puff by mouth once daily 5 Active rOPINIRole (Requip) 0.5 MG tablet Take 1 (one) tablet by mouth at bedtime 5 Active HYDROcodone-michael taminophen ([place]) 10-325 MG tablet Take 1 (one) tablet by mouth every 6 hours as needed 5 Active Active Problems Problem Noted Date Diagnosed Date Mechanical ptosis of bilateral eyelids 5 Dermatochalasis of both upper eyelids 07/11/2024 Resolved Problems Problem Noted Date Diagnosed Date Resolved Date Interstitial lung disease 10/09/2022 Lung nodule seen on imaging study 10/09/2022 12/31/2023 Age-related osteoporosis wit hout current pathological fracture 08/19/2022 12/31/2023 Chronic, continuous use of opioids 07/25/2022 12/31/2023 Mixed stress and urge urinary incontinence 08/02/2021 12/31/2023 Rectocele 08/02/2021 12/31/2023 Vaginal atrophy 08/02/2021 12/31/2023 History of substance abuse 08/15/2020 0 12/31/2023 History of substance abuse 08/15/2020 0 12/31/2023 Palpitations 08/15/2020 12/31/2023 Pain in left knee 12/15/2018 12/31/2023 Pain of left hip joint 12/15/201812/30 Complication of surgical procedure 11/22/2018 12/31/2023 Intervertebral disc stenosis of neural canal 9 12/31/2023 Chronic bronchitis 06/22/2018 4 Pain in left arm 05/25/2018 12/31/2023 Herniated lumbar intervertebral disc 05/08/2018 12/31/2023 Arthralgia of left elbow 03/17/2018 Depressive disorder 01/18/2018 12/31/19 24 Disorder of vitamin B12 12/24/201712/12 Gastroesophageal reflux disease 12/24/2017 12/31/2023 Ulcerative colitis 12/24/2017 4 Anxiety 05/25/2017 12/31/2023 Multiple joint pain 05/25/2017 12/31/19 24 Neck pain 05/25/2017 12/31/2023 Chronic obstructive pulmonary disease 05/13/2017 12/31/2023 Chronic constipation 05/13/2017 024 Insomnia 05/13/2017 12/31/2023 Lumbago 03/17/2016 12/31/2023 Overview (12/31/2023): Last Assessment & Plan: Ms. Cabello has low back pain in [...] to her by phone about the results. Polyp of colon 09/12/2014 12/31/2023 Notalgia 07/28/2011 12/31/2023 Cervical radiculopathy 02/24/201112/30 Social History Tobacco Use Types Packs/Day Years Used Date Smoking Tobacco: Every Day Smokeless Tobacco: Never Alcohol Use Standard Drinks/Week Comments Yes 0 (1 standard drink = 0.6 oz pur e alcohol) OCC AUDIT-C Answer Date Recorded Q1: How often do you have a drink containing alcohol? Never 07/11/2024 Q2: How many drinks containi ng alcohol do you have on a typical day when you are drinking? Patient does not drink Q3: How often do you have si x or more drinks on one occasion? 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 Gender Identity Not on file Sexual Orientation Not on file Last Filed Vital Signs Vital Sign Reading Time Taken Comments Blood Pressure 109/55 07/11/2024 1:20 PM CDT Pulse 68 07/11/2024 1:20 PM CDT Temperature 36.2 C (97.2 F) 07/11/2024 1:20 PM CDT Respiratory Rate 15 07/11/2024 1:20 PM CDT Oxygen Saturation 100% 07/11/2024 1:20 PM CDT Inhaled Oxygen Concentration - - Weight 75.8 kg (167 lb) 07/11/2024 10:08 AM CDT Height 165.1 cm (5' 5) 07/11/2024 10:08 AM CDT Body Mass Index 27.79 07/11/2024 10:08 AM CDT Plan of Treatment Health Maintenance Due Date Last Done Comments COLOGUARD (AGES 45-75) - COLON CA SCREENING 1955 COLON MONITORING 1955 COLONOSCOPY - COLON CA SCREENING 1955 CT COLONOGRAPHY - COLON CA SCREENING 1955 Colorectal Cancer Screening 1955 FIT - COLON CA SCREENING 1955 FLEX SIG - COLON CA SCREENING 1955 LIPID TESTING 1955 HEPATITIS C SCREENING 10/26/1973 DTAP/TDAP/TD VACCINES (1 - Tdap) 10/30/1974 PNEUMOCOCCAL VACCINE 50+ (1 of 2 - PCV) 10/30/1974 ZOSTER VACCINE (1 of 2) 10/30/2005 DEPRESSION SCREENING 04/13/2024 MEDICARE AWV CALENDAR YEAR 2024 SCREENING FOR DIABETES 07/18/2024 COVID-19 VACCINE ( - season) 2024 INFLUENZA VACCINE (#1) 2024 , 03/10/2023, 03/18/2018, Additional history exists MAMMOGRAM 11/11/2025 11/12/2023 Respiratory Syncytial Virus (RSV) Vaccine Pt: or over 60 yrs (1 - 1-dose 75+ series) 10/30/2030 BONE DENSITY TESTING Completed 07/30/2021 HEPATITIS B VACCINE Aged Out No longe r eligible based on patient's age to complete this topic HIB VACCINE Aged Out No longer eligi ble based on patient's age to complete this topic HPV VACCINE Aged Out No longer eligi ble based on patient's age to complete this topic MENINGOCOCCAL (Group B) VACCINE SHARED DECISION-MAKING Aged Out No longer eligible based on patient's age to complete this topic MENINGOCOCCAL GROUPS A/C/Y/W VACCINE Aged Out No longer eligible based on patient's age to complete this topic Insurance [facility] MANAGED MEDICARE ADV [facility] MANAGED MEDICARE ADV [facility] MANAGED MEDICARE ADV Care Teams Digital Data Analyst Relationship Specialty Start Date End Date Terrence Gibson MD [address] [address] PCP - General Family Medicine 12/30/23 Travon Mix OD [address] [place] [id number] Cleaner Window 12/30/23
--- OUTSIDE RECORDS SUMMARY | 2025-03-21 03:31 | XMS_ITS | Encounter Summary ---
Author Organization [facility] Address [address] [place] [address] Care Team Providers Care Local Operator Name Role Phone Terrence Gibson MD Primary Care Provi audi Travon Mix OD Unavailable [phone] Reason for Visit * Reason Onset Date Comments Surgery Scheduling 07/07/2024 Encounter Details Date Type Department Care Team (Late st Contact Info) Description 07/07/2024 Telephone [facility] - Centralized Scheduling [address] [place] [address] Nancy Barton MD [address] [facility] [place] [address] Surgery Scheduling Social History Tobacco Use Types Packs/Day Years [...] on file 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 She is needing to arrange transportation. Please assist, thank you! Patient Call Back Number: [phone] documented in this encounter Plan of Treatment Not on file documented as of this encounter Visit Diagnoses Not on filedocumented in this encounter Care Teams Local Operator Relationship Specialty Start Date End Date Terrence Gibson MD [address] [address] PCP - General Family Medicine 12/30/23 Travon Mix OD [address] [place] [id number] Mathematics Academic Chair 12/30/23 documented as of this encounter
--- OUTSIDE RECORDS SUMMARY | 2025-03-21 03:31 | XMS_ITS | Encounter Summary ---
Author Organization [facility] Address [address] [place] [address] Phone Care Team Providers Care Song And Dance Performer Name Role Phone Terrence Gibson MD Primary Care Provi audi Jessy Delatorre MA Unavailable Vinay Espinal MD Unavailable [phone] Damion Siddiqui MD, Mario P. Unavailable [phone] Alexus Alonzo Unavailable [phone] Encounter Details Date Type Department Care Team (Late st Contact Info) Description 08/19/2022 Treatment [facility] [address] [facility] [address] [place] [address] Dilshad Kyle MD [address] [address] Social History Tobacco Use Types Packs/Day Years Used Date Smoking Tobacco: Every Day Cigarettes 0.5 50 Smokeless Tobacco: Never Alcohol Use Standard Drinks/Week Comments Yes 0 (1 standard drink = 0.6 oz pur e alcohol) PHQ-2 Answer Date Recorded PHQ-2 Total Score (If total score is 3 or more points, staff should administer the PHQ-9) 2 07/25/2022 Comments Unknown Sex and Gender Information Value Date Recorded Sex Assigned at Not on file 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 Gender Identity Not on file Sexual Orientation Not on file Occupation Industry Job Start Date Job End Date Disabled Not on file Not on file Not on file documented as of this encounter Plan of Treatment Not on file documented as of this encounter Visit Diagnoses Not on filedocumented in this encounter Care Teams Song And Dance Performer Relationship Specialty Start Date End Date Terrence Gibson MD [address] [address] PCP - General Family Medicine 06/17/22 Jessy Delatorre MA [address] [place] [address] [employer] Functional Tester 12/08/23 12/21/23 Vinay Espinal MD [address] [place] [address] [address] [place] [address] Consulting Physician Pulmonary Disease 02/16/24 Mario Bruno Jr., MD [address] [place] [address] Consulting Physician Cardiology 04/26/24 Alexus Alonzo PA [address] [place] [address] Orthopedic Surgery 05/24/24 documented as of this encounter
[2025-03-21 13:10] VITALS: BP 117/74; PULSE 102; RESP 18; TEMP 36.1; O2SAT 97; BMI 25.7
[2025-03-21] MEDS: LACTATED RINGERS 1,000 ML 150 ML IV CONT (13:20)
--- NOTE | 2025-03-21 13:25 | WPDANESEPPF ---
Anes - Initial Pre Proc Eval Procedure: Operation Date: 03/21/25 14:15 Proposed Procedures p Esophagogastroduodenoscopy EGD - Sonny Cordero MD Date/Time: 03/21/25 13:25 Surgeon: Sonny Cordero MD Pre Op Diagnosis: Dysphagia, unspecified Patient Data Age: 69 Gender: F Height: 1.68 m Weight: 72.4 kg Last Vital Signs Temp 36.1 C L 03/21/25 13:10 Pulse 102 H 03/21/25 13:10 Resp 18 03/21/25 13:10 BP 117/74 03/21/25 13:10 Pulse Ox 97 03/21/25 13:10 O2 Del Method Room Air 03/21/25 13:10 Allergies Allergy/AdvReac Type Severity Reaction Status Date / Time morphine Allergy Severe Nausea and Verified 03/21/25 13:09 Vomiting Home Medications ?Medication ?Instructions ?Recorded ?Confirmed ?Type albuterol sulfate 90 mcg/actuation 2 puff inhalation Q4-6H PRN 07/18/19 02/27/25 Rx aerosol inhaler (ProAir HFA) shortness of breath or wheezing #18 grams hydrocodone 10 mg-acetaminophen 1 tablet PO Q5H PRN Pain 03/23/20 03/21/25 History 325 mg tablet dexlansoprazole 60 mg 60 mg PO DAILY #90 caps 01/25/25 03/21/25 Rx capsule,biphase delayed release (Dexilant) fluticasone fur. 100 mcg-umeclid 1 inh inhalation DAILY 01/25/25 03/21/25 History 62.5 mcg-vilant 25 mcg inhalat.powder (Trelegy Ellipta) fentanyl 50 mcg/hr transdermal 1 patch transdermal Q72H 02/27/25 02/27/25 History patch ropinirole 0.5 mg tablet 0.5 mg PO HS 02/27/25 03/21/25 History temazepam 15 mg capsule 15 mg PO HS 02/27/25 03/21/25 History gabapentin 300 mg capsule 300 mg PO Q8H 03/21/25 03/21/25 History Patient hx anesthesia problems: none Family hx anesthesia problems: none Results Review: All pre-operative results and documents have been reviewed as part of the pre-operative evaluation. [facility] Past Medical History Medical History Gastritis Esophageal ring Hx of colonic polyps Hematochezia Esophageal spasm Nausea and vomiting Constipation due to opioid therapy Colon polyp Tobacco consumption Dysphagia Hirsutism Acute non-recurrent maxillary sinusitis Rectal pain Tobacco use disorder, continuous Vitamin D deficiency, unspecified Vitamin B12 deficiency anemia Chronic pain of left knee Chronic left hip pain Chronic low back pain without sciatica Insomnia GERD (gastroesophageal reflux disease) Benign colon polyp Cerebral palsy COPD (chronic obstructive pulmonary disease) Chronic anxiety Chronic depression Surgical History Surgical History History of knee surgery Family History Family History Mother Family history of malignant neoplasm, Onset Age: 60 Father Family history of congestive heart failure, Onset Age: 63 Social History Social History Smoking packs per day: 1 Smoking cigarettes per day: 20.0 Years smoked: 57 Smoking pack-years: 57.00 Smoking status: Current some day smoker Tobacco type: cigarettes Alcohol intake: never Alcohol use details: seldom Substance use: never Substance use type: does not use Living arrangements: other Additional living arrangements comments: with sig other Spiritual care concerns: No Anes - Eval Final PreProcedure Day of Procedure 03/21/25 13:25 Patient weight: normal Heart: regular rate and rhythm Lungs: clear to auscultation Airway: Mallampati scale class II Neurological: alert and oriented Last oral intake: >/= 8 hours ASA classification: III Emergent: no Anesthetic plan: proceed Anesthesia type and monitoring: general GIVS and standard monitoring Results Review: All pre-operative results and documents have been reviewed as part of the pre-operative evaluation. Informed Consent: The patient's anesthetic plan and its attendant risks and benefits were discussed with the patient/family/POA. Questions were solicited and answers provided to the satisfaction of the patient/family/POA.
--- NOTE | 2025-03-21 13:48 | PM.HPGS ---
History of Present Illness History of Present Illness Consent: Risks, benefits, and alternatives have been discussed and questions answered. Patient agrees to proceed with procedure. Chief complaint: Dysphagia, unspecified Narrative: Kayy Cabello is a 69 year old female here for another egd, last one 2022 with esophageal ring dilated up to 20 mm now again with dysphagia, h/o gerd already on ppi Review of Systems Review of Systems: All systems reviewed & are unremarkable except as noted in HPI and below PMFSH Past Medical History Medical History Gastritis Esophageal ring Hx of colonic polyps Hematochezia Esophageal spasm Nausea and vomiting Constipation due to opioid therapy Colon polyp Tobacco consumption Dysphagia Hirsutism Acute non-recurrent maxillary sinusitis Rectal pain Tobacco use disorder, continuous Vitamin D deficiency, unspecified Vitamin B12 deficiency anemia Chronic pain of left knee Chronic left hip pain Chronic low back pain without sciatica Insomnia GERD (gastroesophageal reflux disease) Benign colon polyp Cerebral palsy COPD (chronic obstructive pulmonary disease) Chronic anxiety Chronic depression Surgical History Surgical History History of knee surgery Family History Family History Mother Family history of malignant neoplasm, Onset Age: 60 Father Family history of congestive heart failure, Onset Age: 63 Social History Social History Smoking packs per day: 1 Smoking cigarettes per day: 20.0 Years smoked: 57 Smoking pack-years: 57.00 Smoking status: Current some day smoker Tobacco type: cigarettes Alcohol intake: never Alcohol use details: seldom Substance use: never Substance use type: does not use Living arrangements: other Additional living arrangements comments: with sig other Spiritual care concerns: No Meds Home Medications and Allergies Home Medications ?Medication ?Instructions ?Recorded ?Confirmed ?Type albuterol sulfate 90 mcg/actuation 2 puff inhalation Q4-6H PRN 07/18/19 02/27/25 Rx aerosol inhaler (ProAir HFA) shortness of breath or wheezing #18 grams hydrocodone 10 mg-acetaminophen 1 tablet PO Q5H PRN Pain 03/23/20 03/21/25 History 325 mg tablet dexlansoprazole 60 mg 60 mg PO DAILY #90 caps 01/25/25 03/21/25 Rx capsule,biphase delayed release (Dexilant) fluticasone fur. 100 mcg-umeclid 1 inh inhalation DAILY 01/25/25 03/21/25 History 62.5 mcg-vilant 25 mcg inhalat.powder (Trelegy Ellipta) fentanyl 50 mcg/hr transdermal 1 patch transdermal Q72H 02/27/25 02/27/25 History patch ropinirole 0.5 mg tablet 0.5 mg PO HS 02/27/25 03/21/25 History temazepam 15 mg capsule 15 mg PO HS 02/27/25 03/21/25 History gabapentin 300 mg capsule 300 mg PO Q8H 03/21/25 03/21/25 History Allergies Allergy/AdvReac Type Severity Reaction Status Date / Time morphine Allergy Severe Nausea and Verified 03/21/25 13:09 Vomiting Vital Signs Vital Signs - 24 hr 03/21/25 13:10 Temperature 97 F L Pulse Rate 102 H Respiratory Rate 18 Blood Pressure 117/74 Pulse Oximetry 97 Oxygen Delivery Room Air Exam Const: General: comfortable and no acute distress HENMT: Face/Nose/Sinus: Normal nares present Eyes: General: appearance normal, both eyes and all related structures Neck: Neck: no JVD Resp: Auscultation: clear to auscultation bilaterally Cardio: Rate: regular rate Rhythm: regular rhythm GI: Inspection: non-distended GI Palp: Yes Soft to palpation Skin: General skin exam: normal color Extrem: General: normal to inspection Psych: Mental Status: mental status grossly normal Assessment and Plan Assessment and plan (1) GERD (gastroesophageal reflux disease): Qualifiers: Esophagitis presence: with esophagitis Code(s): K21.9 - Gastro-esophageal reflux disease without esophagitis Status: Acute (2) Dysphagia: Code(s): R13.10 - Dysphagia, unspecified Status: Acute Assessment and Plan: egd
[2025-03-21 14:05] VITALS: BP 82/56; PULSE 72; RESP 15; O2SAT 99
[2025-03-21 14:15] VITALS: BP 98/67; PULSE 70; RESP 15; O2SAT 100
[2025-03-21 14:25] VITALS: BP 98/62; PULSE 69; RESP 16; O2SAT 100
== END 2025-03-21 14:32 | disposition home or self-care (01) ==
PROVIDERS: PCP Family Medicine; Referring Provider Nurse Practitioner; Visit Provider Internal Medicine Gastroenterology
PROC: 0DJ08ZZ Inspection of Upper Intestinal Tract, Via Natural or Artificial Opening Endoscopic (ICD-10-PCS; CPT 43249; principal; 2025-03-21 14:15)
DX: K21.9 Gastro-esophageal reflux disease without esophagitis (principal); K22.2 Esophageal obstruction; K44.9 Diaphragmatic hernia without obstruction or gangrene; J44.9 Chronic obstructive pulmonary disease, unspecified; F41.9 Anxiety disorder, unspecified; F32.A Depression, unspecified; E55.9 Vitamin D deficiency, unspecified; E53.8 Deficiency of other specified B group vitamins; G47.00 Insomnia, unspecified; G89.29 Other chronic pain; M54.50 Low back pain, unspecified; M25.562 Pain in left knee; M25.552 Pain in left hip; F17.210 Nicotine dependence, cigarettes, uncomplicated; Z79.51 Long term (current) use of inhaled steroids; Z79.891 Long term (current) use of opiate analgesic; Z98.890 Other specified postprocedural states; Z86.0100 Personal history of colon polyps, unspecified; Z87.19 Personal history of other diseases of the digestive system; Z80.9 Family history of malignant neoplasm, unspecified; Z82.49 Family history of ischemic heart disease and other diseases of the circulatory system
CPT/HCPCS: 43249; C1726; J2003; J2704; J7120